=== PATIENT | male | born 1975 | race Caucasian/White ===

== ENCOUNTER 2017-08-08 19:14 | Emergency (ER) | payer SELFPAY ==
[2017-08-12 14:15] VITALS: BMI 26.5
== END 2017-08-08 20:52 | disposition home or self-care (01) ==
LOC: D.ER 19:14
DX: T25.222A Burn of second degree of left foot, initial encounter (principal); X12.XXXA Contact with other hot fluids, initial encounter; Y93.G3 Activity, cooking and baking; Y92.029 Unspecified place in mobile home as the place of occurrence of the external cause; F17.200 Nicotine dependence, unspecified, uncomplicated

== ENCOUNTER 2017-08-08 23:18 | Emergency (ER) | payer SELFPAY ==
[2017-08-08 23:43] LABS: HEMATOCRIT 45.6 % (42.0-54.0); HEMOGLOBIN 15.5 g/dL (13.5-17.5); LYMPHOCYTES 13.9 % (15-50); MCH 31.5 pg (26.0-34.0); MCV 92.7 fL (80.0-100.0); MEAN PLATELET VOLUME 9.9 fL (7.4-10.4); NEUTROPHILS 79.4 % (40-80); PLATELET COUNT 248 10x3/uL (130-400); RBC 4.92 10x6/uL (4.20-6.10); RDW 11.6 % (11.5-14.5); WBC 8.9 10x3/uL (4.8-10.8)
[2017-08-12 14:15] VITALS: BMI 26.5
== END 2017-08-08 23:52 | disposition home or self-care (01) ==
LOC: D.ER 23:18
PROVIDERS: Emergency Medicine
DX: R10.9 Unspecified abdominal pain (principal); R11.10 Vomiting, unspecified

== ENCOUNTER 2017-08-09 06:48 | Emergency (ER) | payer SELFPAY ==
[2017-08-09 08:13] LABS: APPEARANCE HAZY (CLEAR); BILIRUBIN NEGATIVE (NEGATIVE); COLOR YELLOW (YELLOW); GLUCOSE NEGATIVE (NEGATIVE); KETONE NEGATIVE (NEGATIVE); NITRITE NEGATIVE (NEGATIVE); PROTEIN NEGATIVE (NEGATIVE); SPECIFIC GRAVITY 1.015 (1.005-1.020); UROBILINOGEN NORMAL (NORMAL)
[2017-08-09 08:16] LABS: BASOPHILS 0.1 % (0-2); EOSINOPHILS 1.2 % (0-7); HEMATOCRIT 48.3 % (42.0-54.0); HEMOGLOBIN 16.3 g/dL (13.5-17.5); IMMATURE GRANULOCYTES 0.5 % (0-5); LYMPHOCYTES 11.4 % (15-50); MCHC 33.7 g/dL (31.0-37.0); MEAN PLATELET VOLUME 10.6 fL (7.4-10.4); MONOCYTES 11.5 % (2-11); NEUTROPHILS 75.3 % (40-80); PLATELET COUNT 282 10x3/uL (130-400); RBC 5.09 10x6/uL (4.20-6.10); WBC 10.9 10x3/uL (4.8-10.8)
[2017-08-09 08:18] LABS: MCV 94.9 fL (80.0-100.0)
[2017-08-09 08:45] LABS: ALBUMIN 3.1 g/dL (3.4-5.0); ALKALINE PHOSPHATASE 70 U/L (46-116); ALT (SGPT) 27 U/L (10-68); BILIRUBIN - TOTAL 0.52 mg/dL (0.2-1.3); CALC OSMOLALITY 280 mosm/kg (275-300); CALCIUM 8.5 mg/dL (8.5-10.1); CARBON DIOXIDE 28.1 mmol/L (21.0-32.0); CHLORIDE - SERUM 103 mmol/L (98-107); GLUCOSE 120 mg/dL (74-106); LIPASE 81 U/L (73-393); POTASSIUM - SERUM 4.3 mmol/L (3.5-5.1); PROTEIN - SERUM 7.1 g/dL (6.4-8.2); SODIUM 140 mmol/L (136-145); UREA NITROGEN 14 mg/dL (7-18); eGFR NON AFRICAN AMERICAN 88 mL/min (90-120)
[2017-08-12 14:15] VITALS: BMI 26.5
== END 2017-08-09 09:24 | disposition home or self-care (01) ==
LOC: D.ER 06:48
PROVIDERS: Emergency Medicine
DX: A08.4 Viral intestinal infection, unspecified (principal); F17.200 Nicotine dependence, unspecified, uncomplicated

== ENCOUNTER 2017-08-11 21:41 | Emergency (ER) | payer SELFPAY ==
[2017-08-11 22:29] LABS: BASOPHILS 0.2 % (0-2); EOSINOPHILS 3.9 % (0-7); HEMATOCRIT 58.3 % (42.0-54.0); HEMOGLOBIN 19.3 g/dL (13.5-17.5); IMMATURE GRANULOCYTES 0.7 % (0-5); LYMPHOCYTES 12.3 % (15-50); MCH 31.8 pg (26.0-34.0); MCHC 33.1 g/dL (31.0-37.0); MEAN PLATELET VOLUME 10.7 fL (7.4-10.4); MONOCYTES 12.4 % (2-11); NEUTROPHILS 70.5 % (40-80); RBC 6.07 10x6/uL (4.20-6.10); RDW 12.3 % (11.5-14.5); WBC 11.3 10x3/uL (4.8-10.8)
[2017-08-11 22:30] LABS: PLATELET COUNT 342 10x3/uL (130-400)
[2017-08-11 22:39] LABS: ALBUMIN 2.8 g/dL (3.4-5.0); ANION GAP 14.5 mmol/L (8-16); BILIRUBIN - TOTAL 0.59 mg/dL (0.2-1.3); CALCIUM 8.3 mg/dL (8.5-10.1); CARBON DIOXIDE 25.5 mmol/L (21.0-32.0); CREATININE - SERUM 1.3 mg/dL (0.6-1.3); PROTEIN - SERUM 6.8 g/dL (6.4-8.2)
[2017-08-12] MEDS ORDERED: PERCOCET 5-3251 TAB PO (02:20)
[2017-08-12] MEDS ORDERED: LOMOTIL TABLET1 TAB PO (02:21)
[2017-08-12 14:15] VITALS: BMI 26.5
== END 2017-08-11 21:42 | disposition left against medical advice (07) ==
LOC: D.ER 21:41
PROVIDERS: Physician Assistant Medical
DX: K52.9 Noninfective gastroenteritis and colitis, unspecified (principal); T25.232A Burn of second degree of left toe(s) (nail), initial encounter; X10.2XXA Contact with fats and cooking oils, initial encounter; Y93.89 Activity, other specified; Y92.020 Kitchen in mobile home as the place of occurrence of the external cause

== ENCOUNTER 2017-08-11 21:46 | Observation (INO) | payer SELFPAY ==
[~2017-08-11] VITALS: Ht 175.3 cm; Wt 81.6 kg
[2017-08-12 01:59] VITALS: BP 126/85; BMI 26.6
[2017-08-12] MEDS ORDERED: PERCOCET 5-3251 TAB PO (02:20)
[2017-08-12] MEDS ORDERED: LOMOTIL TABLET1 TAB PO (02:21)
[2017-08-12 04:00] VITALS: BP 126/85
[2017-08-12 08:38] VITALS: BP 139/86
[2017-08-12 10:48] LABS: HEMATOCRIT 56.4 % (42.0-54.0); HEMOGLOBIN 18.9 g/dL (13.5-17.5); MCH 31.8 pg (26.0-34.0); MCHC 33.5 g/dL (31.0-37.0); MCV 94.8 fL (80.0-100.0); PLATELET COUNT 353 10x3/uL (130-400); RBC 5.95 10x6/uL (4.20-6.10); RDW 12.3 % (11.5-14.5); WBC 10.1 10x3/uL (4.8-10.8)
[2017-08-12 11:49] LABS: EOSINOPHILS 1 % (0-7); LYMPHOCYTES 24 % (15-50); MONOCYTES 20 % (2-11); NEUTROPHILS 40 % (40-80); PLATELET ESTIMATE NORMAL
[2017-08-12 12:19] LABS: AMYLASE - SERUM 17 U/L (25-115); LIPASE 56 U/L (73-393)
[2017-08-12 14:15] VITALS: Ht 175.3 cm; Wt 81.6 kg
[2017-08-12 16:16] VITALS: BP 136/83
[2017-08-12 21:56] LABS: APPEARANCE CLEAR (CLEAR); BILIRUBIN NEGATIVE (NEGATIVE); COLOR DK YELLOW (YELLOW); GLUCOSE NEGATIVE (NEGATIVE); KETONE NEGATIVE (NEGATIVE); NITRITE NEGATIVE (NEGATIVE); PROTEIN NEGATIVE (NEGATIVE); SPECIFIC GRAVITY 1.025 (1.005-1.020); UROBILINOGEN NORMAL (NORMAL)
[2017-08-12 21:59] LABS: BACTERIA FEW /hpf (NONE SEEN); EPITHELIAL CELLS OCC /hpf (0-5); WHITE CELLS - URINE 0-5 /hpf (0-5)
[2017-08-12 23:01] VITALS: BP 110/73
[2017-08-13 04:46] VITALS: BP 102/65; BP 117/72
[2017-08-13 06:01] LABS: BASOPHILS 0.1 % (0-2); EOSINOPHILS 9.2 % (0-7); IMMATURE GRANULOCYTES 0.7 % (0-5); LYMPHOCYTES 36.3 % (15-50); MCH 30.9 pg (26.0-34.0); MCHC 32.2 g/dL (31.0-37.0); MCV 95.9 fL (80.0-100.0); MEAN PLATELET VOLUME 10.5 fL (7.4-10.4); MONOCYTES 11.6 % (2-11); NEUTROPHILS 42.1 % (40-80); PLATELET COUNT 289 10x3/uL (130-400); RDW 12.2 % (11.5-14.5); WBC 9.2 10x3/uL (4.8-10.8)
[2017-08-13 06:37] LABS: BILIRUBIN - TOTAL 0.5 mg/dL (0.2-1.3); CALCIUM 7.7 mg/dL (8.5-10.1); CARBON DIOXIDE 27.5 mmol/L (21.0-32.0); CREATININE - SERUM 1.2 mg/dL (0.6-1.3)
[2017-08-13 06:45] LABS: HEMATOCRIT 42.2 % (42.0-54.0); HEMOGLOBIN 13.6 g/dL (13.5-17.5)
[2017-08-13 06:49] LABS: ALBUMIN 1.9 g/dL (3.4-5.0); ANION GAP 9.2 mmol/L (8-16); POTASSIUM - SERUM 3.7 mmol/L (3.5-5.1); PROTEIN - SERUM 4.4 g/dL (6.4-8.2)
[2017-08-13 08:42] VITALS: BP 114/64
[2017-08-13] MEDS ORDERED: FLAGYL500 MG PO (09:21)
[2017-08-13] MEDS ORDERED: NICODERM C1 PATCH .1 TRANSDERM (09:22)
== END 2017-08-13 15:25 | disposition home or self-care (01) ==
LOC: D.ER 21:46 → D.MS 08-12 01:35 → OBSVTIME 08-12 01:35 → D.MS 08-13 15:25
PROVIDERS: Emergency Medicine; ADMIT Family Medicine Adult Medicine
DX: K52.9 Noninfective gastroenteritis and colitis, unspecified (principal); E86.0 Dehydration; F17.203 Nicotine dependence unspecified, with withdrawal